=== PATIENT | female | born 1995 | race American Indian/Alaskan Native ===

== ENCOUNTER 2017-06-25 12:53 | Emergency (ER) | payer SELFPAY ==
[2017-06-25 13:02] VITALS: BP 126/83
--- NOTE | 2017-06-25 15:25 | Emergency Department Report ---
Blank Doc - Documentation Documentation: Patient is a 21-year-old [place] female who is having pelvic irritation. Patient states is no dysuria and there is no vaginal discharge or abnormal vaginal bleeding but she states that for the past month she is having some discomfort in the pelvic region. Patient states she was seen at [facility] for the same issue approximately 3 weeks ago and was given a shot as well as a fifth azithromycin and Bactrim. She was diagnosed with PID and urinary tract infection. Patient says after taking these medications she is not better. Patient is here for evaluation. Moved to a treatment room for pelvic exam. Patient may have bacterial vaginosis causing the symptoms. We will rule out cervical motion tenderness that may warrant further evaluation for persistent PID.
--- NOTE | 2017-06-25 15:48 | Emergency Department Report ---
ED Abdominal Pain HPI - General Chief Complaint: Urogenital-Female Stated Complaint: BURNING WHEN URNATION Time Seen by Provider: 06/25/17 15:06 Source: patient Mode of arrival: Ambulatory Limitations: No Limitations - History of Present Illness Initial Comments: This is a 21-year-old female nontoxic, well nourished in appearance, no acute signs of distress presents to the ED with c/o of pelvic irritation x1 month. Patient stated she was seen in an ED last month in [facility] and received Rocephin and Azithromycin in the ED which symptoms has resolved but came back yesterday. Patient describes pelvic irritation as cramping. Patient denies any urinary symptoms, vaginal bleeding, vaginal discharge, chest pain, shortness of breathe, fever, chills, headache, nausea, vomiting, back pain. Patient denies radiation of pain. Patient denies any allergies. PMH includes PID. MD Complaint: other (pelvic pain) -: month(s) (1) Radiation: none Migration to: no migration Severity: mild Severity scale (0 -10): 3 Quality: cramping Consistency: intermittent Improves With: nothing Worsens With: nothing Associated Symptoms: denies other symptoms. denies: nausea, vomiting, diarrhea , fever, chills, constipation, dysuria, hematemesis, hematochezia, melena, hematuria, anorexia, syncope - Related Data LMP Date: 06/16/17 Previous Rx's Medication Instructions Recorded Last Taken Type metroNIDAZOLE [Flagyl] 500 mg PO Q12HR #14 tab 06/25/17 Unknown Rx Allergies Allergy/AdvReac Type Severity Reaction Status Date / Time No Known Allergies Allergy Unverified 06/25/17 13:02 ED Review of Systems ROS: Stated complaint: BURNING WHEN URNATION Other details as noted in HPI Constitutional: denies: chills, fever Eyes: denies: eye pain, eye discharge, vision change ENT: denies: ear pain, throat pain Respiratory: denies: cough, shortness of breath, wheezing Cardiovascular: denies: chest pain, palpitations Endocrine: no symptoms reported Gastrointestinal: abdominal pain (pelvic pain). denies: nausea, diarrhea Genitourinary: denies: urgency, dysuria, discharge Musculoskeletal: denies: back pain, joint swelling, arthralgia Skin: denies: rash, lesions Neurological: denies: headache, weakness, paresthesias Psychiatric: denies: anxiety, depression Hematological/Lymphatic: denies: easy bleeding, easy bruising ED Past Medical Hx - Past Medical History Previous Medical History?: No - Surgical History Past Surgical History?: No - Social History Smoking Status: Never Smoker Substance Use Type: None - Medications Home Medications: Home Medications Medication Instructions Recorded Confirmed Last Taken Type metroNIDAZOLE [Flagyl] 500 mg PO Q12HR #14 tab 06/25/17 Unknown Rx ED Physical Exam - General Limitations: No Limitations General appearance: alert, in no apparent distress - Head Head exam: Present: atraumatic, normocephalic - Eye Eye exam: Present: normal appearance Pupils: Present: normal accommodation - ENT ENT exam: Present: normal exam, mucous membranes moist - Neck Neck exam: Present: normal inspection, full ROM. Absent: tenderness, meningismus, lymphadenopathy - Respiratory Respiratory exam: Present: normal lung sounds bilaterally. Absent: respiratory distress, wheezes, rales, rhonchi, stridor, chest wall tenderness, accessory muscle use, decreased breath sounds, prolonged expiratory - Cardiovascular Cardiovascular Exam: Present: regular rate, normal rhythm, normal heart sounds. Absent: irregular rhythm, systolic murmur, diastolic murmur, rubs, gallop - GI/Abdominal GI/Abdominal exam: Present: soft, normal bowel sounds. Absent: distended, tenderness, guarding, rebound, rigid, diminished bowel sounds - Expanded GI/Abdominal Exam Expanded GI/Abdominal exam: Absent: psoas sign, obturator sign, heel tap sign, Gary's sign, Rovsing's sign, tenderness at Mcburney's Point, ascites - Rectal Rectal exam: Present: deferred - External exam: Present: normal external exam, other (mobile sales consultant Susan RN present during exam). Absent: erythema, swelling, lesions, lacerations, ecchymosis, bleeding Speculum exam: Present: normal speculum exam, other (mobile sales consultant Susan RN present during exam). Absent: erythema, vaginal discharge, cervical discharge, vaginal bleeding, foreign body, tissue, laceration Bi-manual exam: Present: normal bi-manual exam, other (mobile sales consultant Susan RN present during exam). Absent: cervical motion tendernes, adnexal tenderness, adnexal mass, uterine enlargement, uterine tenderness - Extremities Exam Extremities exam: Present: normal inspection, full ROM, normal capillary refill - Back Exam Back exam: Present: normal inspection, full ROM. Absent: tenderness, CVA tenderness (R), CVA tenderness (L), muscle spasm, paraspinal tenderness, vertebral tenderness, rash noted - Neurological Exam Neurological exam: Present: alert, oriented X3, normal gait - Psychiatric Psychiatric exam: Present: normal affect, normal mood - Skin Skin exam: Present: warm, dry, intact, normal color. Absent: rash ED Course Vital Signs 06/25/17 12:58 Temperature 98.8 F Pulse Rate 110 H Respiratory 16 Rate Blood Pressure 126/83 O2 Sat by Pulse 99 Oximetry - Reevaluation(s) Reevaluation #1: 06/25/17 15:50 Patient is speaking in full sentences with no signs of distress noted. - Consultations Consultation #1: 06/25/17 16:46 Patient has been consulted with Dr. Earl about patient history, physical exam , and labs and examined and screened patient and agrees to ED plan of care and discharge plan of care. ED Medical Decision Making - Medical Decision Making This is a 21-year-old female that presents with bacterial vaginosis. Patient is stable and was examined by me and Dr. aErl. There is no cervical motion tenderness upon examination. As per Dr. Earl, no other laboratory or imaging study needed. Patient received Rocephin and azithromycin in the ED. Patient is discharged with Flagyl. Wet prep obtained. GC pending. UA normal. Patient was referred to Follow-up with a primary care doctor in 3-5 days or if symptoms worsen and continue return to emergency room as soon as possible. At time of discharge, the patient does not seem toxic or ill in appearance. No acute signs of distress noted. Patient agrees to discharge treatment plan of care. No further questions noted by the patient. Critical care attestation.: If time is entered above; I have spent that time in minutes in the direct care of this critically ill patient, excluding procedure time. ED Disposition Clinical Impression: Bacterial vaginosis Disposition: - TO HOME OR SELFCARE Is pt being admited?: No Does the pt Need Aspirin: No Condition: Stable Instructions: Bacterial Vaginosis (ED), Metronidazole (By mouth) Additional Instructions: Follow-up with a primary care doctor in 3-5 days or if symptoms worsen and continue return to emergency room as soon as possible. Do not consume any alcohol while taking antibiotics Prescriptions: metroNIDAZOLE [Flagyl] 500 mg PO Q12HR #14 tab Referrals: PRIMARY CARE, [Primary Care Provider] - 3-5 Days HUMERA BRODY MD [Staff Physician] - 3-5 Days [facility] [Outside] - 3-5 Days [facility] [Outside] - 3-5 Days Forms: Work/School Release Form(ED)
[2017-06-25 16:33] LABS: Bacteria,Urine 1+ /HPF (Negative); Bilirubin,Urine NEG (Negative); Blood,Urine NEG (Negative); Color,Urine Yellow (Yellow); Mucus,Urine FEW /HPF; Protein,Urine <15 mg/dL mg/dL (Negative); Urobilinogen,Urine < 2.0 mg/dL (<2.0); WBC,Urine < 1.0 /HPF (0.0-6.0)
[2017-06-25 16:34] LABS: HCG Qualitative,Urine Negative (Negative)
[2017-06-25] MEDS ORDERED: ROCEPHIN IM ONE (16:40)
[2017-06-25] MEDS ORDERED: ZITHROMAX PO ONE (16:40)
[2017-06-25] MEDS ORDERED: XYLOCAINE 1% MPF 5 mL INFILTRATI ONE (16:40)
== END 2017-06-25 18:30 | disposition home or self-care (01) ==
LOC: ED 12:53
DX: N76.0 Acute vaginitis (principal)
CPT/HCPCS: 81001; 81025; 87210; 87591; 96372; 99284; J0696